=== PATIENT | female | born 1990 ===

== ENCOUNTER → 2017-07-09 | Outpatient (CLI) | payer OTHER ==
[~2017-07-09] MED LIST: ALBU90OI INH; CODACE30 PO; DOXY100 PO; HYDACE5 PO; NAPR500 PO; PENVK500 PO; RXCODACET PO; RXPENVK250 PO; RXTRAM50 PO; TRAM50 PO
[2017-07-09 16:40] LABS: BASOPHILS ABSOLUTE AUTO 0.05 K/mm3 (0.00-0.23); BASOPHILS PERCENT AUTO 1 % (0-2); EOSINOPHILS ABSOLUTE AUTO 0.17 K/mm3 (0.00-0.68); EOSINOPHILS PERCENT AUTO 2 % (0-6); Hematocrit 37.1 % (33.0-51.0); IMMATURE GRAN ABSOLUTE AUTO 0.02 K/mm3 (0.00-0.10); IMMATURE GRAN PERCENT AUTO 0 % (0-1); LYMPHOCYTES ABSOLUTE AUTO 2.47 K/mm3 (0.84-5.20); LYMPHOCYTES PERCENT AUTO 33 % (21-46); MONOCYTES ABSOLUTE AUTO 0.67 K/mm3 (0.16-1.47); MONOCYTES PERCENT AUTO 9 % (4-13); Mean Corpuscular HGB 27.3 pg (26.0-34.0); Mean Corpuscular HGB Conc 32.3 g/dL (31.5-36.5); Mean Corpuscular Volume 85 fL (80-100); Mean Platelet Volume 10.5 fL (9.1-12.4); NEUTROPHILS PERCENT AUTO 55 % (41-73); Platelet Count 310 K/mm3 (150-400); RDW Coefficient Variation 14.6 % (11.7-14.2); RDW Standard Deviation 44.9 fL (35.1-46.3); Red Blood Cell Count 4.39 M/mm3 (3.80-5.20); White Blood Cell Count 7.58 K/mm3 (4.00-11.30)
[2017-07-09 16:58] LABS: Alanine Aminotransfer (ALT/SGP 37 U/L (12-78); Albumin, Blood 3.6 g/dL (3.4-5.0); Albumin/Globulin Ratio 0.8 (0.8-1.8); Alk Phos 77 U/L (50-136); Anion Gap 8 mmol/L (6-16); Aspartate Aminotrans (AST/SGOT 20 U/L (12-37); Bilirubin, Total 0.3 mg/dL (0.1-1.0); Blood Urea Nitrogen 8 mg/dL (8-24); Bun/Creatinine Ratio 16.2 (12.0-20.0); CO2, Blood 24 mmol/L (21-32); Calcium, Blood 8.7 mg/dL (8.5-10.1); Chloride, Blood 106 mmol/L (98-108); Creatinine, Blood 0.49 mg/dL (0.40-1.00); Free Thyroxine 0.76 ng/dL (0.70-1.60); Globulin, Blood 4.3 g/dL (2.2-4.0); Glomerular Filtration Rate >60 (60-); Glucose, Blood 83 mg/dL (70-99); Potassium, Blood 3.8 mmol/L (3.5-5.5); Sodium, Blood 138 mmol/L (136-145); Total Protein, Blood 7.9 g/dL (6.4-8.2)
[2017-07-09 17:12] LABS: Percent Saturation 5.3 % (15.0-50.0)
== END | disposition home or self-care (01) ==
LOC: LAB 15:44
PROVIDERS: Nurse Practitioner Family
DX: R53.82 Chronic fatigue, unspecified (principal)
CPT/HCPCS: 80053; 82306; 83540; 83550; 84439; 84443; 85025

== ENCOUNTER → 2017-09-17 | Outpatient (CLI) | payer OTHER ==
[2017-09-18 17:08] LABS: CHLAMYDIA TRACHOMATIS, NAA Negative (Negative); NEISSERIA GONORRHOEAE, NAA Negative (Negative)
== END ==
LOC: LAB 12:16 → LAB SHORT 12:16
PROVIDERS: Registered Nurse Community Health
DX: Z11.3 Encounter for screening for infections with a predominantly sexual mode of transmission (principal)
CPT/HCPCS: 87491; 87591

== ENCOUNTER → 2018-07-28 | Outpatient (CLI) | payer OTHER | END | disposition home or self-care (01) | LOC: LAB SHORT 12:42 → LAB EV 12:42 | DX: J02.9 Acute pharyngitis, unspecified (principal) | CPT/HCPCS: 87070 ==

== ENCOUNTER → 2019-02-16 | Outpatient (CLI) | payer OTHER | END | disposition home or self-care (01) | LOC: LAB SHORT 11:12 → LAB EV 11:12 | DX: J02.9 Acute pharyngitis, unspecified (principal) | CPT/HCPCS: 87081 ==

== ENCOUNTER 2019-10-26 02:25 | Emergency (ER) | payer OTHER ==
[~2019-10-26] VITALS: Ht 165.1 cm; Wt 87.5 kg
[2019-10-26] MEDS ORDERED: CITA20 PO (03:25)
[2019-10-26 03:44] LABS: BASOPHILS ABSOLUTE AUTO 0.07 K/mm3 (0.00-0.23); BASOPHILS PERCENT AUTO 1 % (0-2); EOSINOPHILS ABSOLUTE AUTO 0.12 K/mm3 (0.00-0.68); EOSINOPHILS PERCENT AUTO 1 % (0-6); Hematocrit 39.4 % (33.0-51.0); Hemoglobin 12.8 g/dL (11.5-16.0); IMMATURE GRAN ABSOLUTE AUTO 0.02 K/mm3 (0.00-0.10); IMMATURE GRAN PERCENT AUTO 0 % (0-1); LYMPHOCYTES ABSOLUTE AUTO 2.74 K/mm3 (0.84-5.20); LYMPHOCYTES PERCENT AUTO 26 % (21-46); MONOCYTES PERCENT AUTO 12 % (4-13); Mean Corpuscular HGB 29.4 pg (26.0-34.0); Mean Corpuscular HGB Conc 32.5 g/dL (31.5-36.5); Mean Corpuscular Volume 91 fL (80-100); Mean Platelet Volume 9.8 fL (9.1-12.4); NEUTROPHILS ABSOLUTE AUTO 6.33 K/mm3 (1.96-9.15); NEUTROPHILS PERCENT AUTO 60 % (41-73); Platelet Count 313 K/mm3 (150-400); RDW Coefficient Variation 13.1 % (11.7-14.2); RDW Standard Deviation 43.2 fL (35.1-46.3); Red Blood Cell Count 4.35 M/mm3 (3.80-5.20); White Blood Cell Count 10.48 K/mm3 (4.00-11.30)
[2019-10-26 04:01] LABS: Alanine Aminotransfer (ALT/SGP 66 U/L (12-78); Albumin, Blood 3.5 g/dL (3.4-5.0); Albumin/Globulin Ratio 0.8 (0.8-1.8); Alk Phos 98 U/L (50-136); Anion Gap 3 mmol/L (6-16); Aspartate Aminotrans (AST/SGOT 50 U/L (12-37); Bilirubin, Total 0.4 mg/dL (0.1-1.0); Blood Urea Nitrogen 11 mg/dL (8-24); Bun/Creatinine Ratio 18.7 (12.0-20.0); CO2, Blood 27 mmol/L (21-32); Calcium, Blood 8.3 mg/dL (8.5-10.1); Chloride, Blood 106 mmol/L (98-108); Creatinine, Blood 0.59 mg/dL (0.40-1.00); Globulin, Blood 4.2 g/dL (2.2-4.0); Glomerular Filtration Rate >60 (60-); Glucose, Blood 103 mg/dL (70-99); Potassium, Blood 3.8 mmol/L (3.5-5.5); Sodium, Blood 136 mmol/L (136-145); Total Protein, Blood 7.7 g/dL (6.4-8.2)
[2019-10-26 04:32] LABS: Source, Urine Clean Catch
[2019-10-26 04:35] LABS: Bilirubin, Urine Neg (Neg); Blood, Urine 5+ (Neg); Glucose Qualitative, Urine Neg (Neg); Ketones, Urine Neg (Neg); Leukocyte Esterase, Urine 3+ (Neg); Nitrite, Urine Neg (Neg); Protein, Urine 3+ (Neg); Urobilinogen, Urine NORM (Normal); pH, Urine 6.5 (5.0-8.0)
[2019-10-26 04:38] LABS: Appearance, Urine Clear (Clear); Color, Urine Yellow (P-Yellow)
[2019-10-26 04:40] LABS: White Blood Cells, Urine 50-100 /hpf (0-5)
[2019-10-26 04:41] LABS: Bacteria Mod /hpf; Mucus Light (0-Heavy); Red Blood Cells, Urine 0-2 /hpf (0-2); Squamous Epithelial Cells Few /hpf (Few)
[2019-10-26] MEDS ORDERED: CEFD300 PO (05:18)
== END 2019-10-26 05:40 | disposition home or self-care (01) ==
LOC: ER 02:25
PROVIDERS: Emergency Medicine
DX: N39.0 Urinary tract infection, site not specified (principal)
CPT/HCPCS: 36415; 80053; 81001; 81025; 85025; 87077; 87086; 87186; 96365; 96375; 99284-25; J0696; J1885

== ENCOUNTER → 2020-01-25 | Outpatient (CLI) | payer OTHER ==
[~2020-01-25] MED LIST changes: +CEFD300 PO; +CITA20 PO
== END | disposition home or self-care (01) ==
LOC: LAB SHORT 12:02
DX: J02.9 Acute pharyngitis, unspecified (principal); Z20.828 Contact with and (suspected) exposure to other viral communicable diseases
CPT/HCPCS: 87081; U0003

== ENCOUNTER → 2020-12-29 | Outpatient (CLI) | payer OTHER ==
[2020-12-29 09:14] LABS: BASOPHILS ABSOLUTE AUTO 0.04 K/mm3 (0.00-0.23); BASOPHILS PERCENT AUTO 0 % (0-2); EOSINOPHILS ABSOLUTE AUTO 0.01 K/mm3 (0.00-0.68); EOSINOPHILS PERCENT AUTO 0 % (0-6); Hematocrit 35.7 % (33.0-51.0); Hemoglobin 11.9 g/dL (11.5-16.0); IMMATURE GRAN ABSOLUTE AUTO 0.04 K/mm3 (0.00-0.10); IMMATURE GRAN PERCENT AUTO 0 % (0-1); LYMPHOCYTES ABSOLUTE AUTO 1.21 K/mm3 (0.84-5.20); LYMPHOCYTES PERCENT AUTO 10 % (21-46); MONOCYTES ABSOLUTE AUTO 0.98 K/mm3 (0.16-1.47); MONOCYTES PERCENT AUTO 8 % (4-13); Mean Corpuscular HGB 28.9 pg (26.0-34.0); Mean Corpuscular HGB Conc 33.3 g/dL (31.5-36.5); Mean Corpuscular Volume 87 fL (80-100); Mean Platelet Volume 10.3 fL (9.1-12.4); NEUTROPHILS ABSOLUTE AUTO 9.47 K/mm3 (1.96-9.15); NEUTROPHILS PERCENT AUTO 81 % (41-73); Platelet Count 309 K/mm3 (150-400); RDW Coefficient Variation 13.2 % (11.7-14.2); RDW Standard Deviation 41.2 fL (35.1-46.3); Red Blood Cell Count 4.12 M/mm3 (3.80-5.20); White Blood Cell Count 11.75 K/mm3 (4.00-11.30)
[2020-12-29 10:16] LABS: Alanine Aminotransfer (ALT/SGP 26 U/L (12-78); Albumin, Blood 3.5 g/dL (3.4-5.0); Albumin/Globulin Ratio 0.8 (0.8-1.8); Alk Phos 78 U/L (50-136); Anion Gap 4 mmol/L (6-16); Aspartate Aminotrans (AST/SGOT 19 U/L (12-37); Bilirubin, Total 0.9 mg/dL (0.1-1.0); Blood Urea Nitrogen 9 mg/dL (8-24); Bun/Creatinine Ratio 11.4 (12.0-20.0); CO2, Blood 27 mmol/L (21-32); Calcium, Blood 8.5 mg/dL (8.5-10.1); Chloride, Blood 103 mmol/L (98-108); Creatinine, Blood 0.79 mg/dL (0.40-1.00); Globulin, Blood 4.3 g/dL (2.2-4.0); Glomerular Filtration Rate >60 (60-); Glucose, Blood 103 mg/dL (70-99); Potassium, Blood 3.9 mmol/L (3.5-5.5); Sodium, Blood 134 mmol/L (136-145); Total Protein, Blood 7.8 g/dL (6.4-8.2)
== END | disposition home or self-care (01) ==
LOC: LAB SHORT 09:06 → LAB EV 09:06
PROVIDERS: Physician Assistant
DX: N10 Acute pyelonephritis (principal)
CPT/HCPCS: 80053; 85025; 87077; 87086; 87186

== ENCOUNTER → 2021-10-13 | Outpatient (CLI) | payer OTHER | LOC: LAB 15:40 → LAB SHORT 15:40 | DX: N39.0 Urinary tract infection, site not specified (principal) | CPT/HCPCS: 87077; 87086; 87186 ==

== ENCOUNTER → 2021-12-05 | Outpatient (CLI) | payer OTHER ==
[2021-12-07 16:08] LABS: CHLAMYDIA TRACHOMATIS, NAA Negative (Negative); HPV 16 Negative (Negative); HPV 18 Negative (Negative); HPV OTHER HR TYPES Negative (Negative)
== END | disposition home or self-care (01) ==
LOC: LAB 12:28 → LAB SHORT 12:28
PROVIDERS: Advanced Practice Midwife
DX: Z01.419 Encounter for gynecological examination (general) (routine) without abnormal findings (principal); Z11.3 Encounter for screening for infections with a predominantly sexual mode of transmission
CPT/HCPCS: 87491; 87591; 87624; G0123

== ENCOUNTER → 2022-01-16 | Outpatient (CLI) | payer OTHER | END | disposition home or self-care (01) | LOC: LAB 18:47 → LAB SHORT 18:47 | DX: Z34.92 Encounter for supervision of normal pregnancy, unspecified, second trimester (principal) | CPT/HCPCS: 83036 ==

== ENCOUNTER → 2022-03-27 | Outpatient (CLI) | payer OTHER ==
[2022-03-27 18:41] LABS: Hematocrit 31.8 % (33.0-51.0); Hemoglobin 9.7 g/dL (11.5-16.0)
[2022-03-27 19:49] LABS: Ferritin, Serum 2 ng/mL (8-252); Glucose 1 Hour Gest Screen 150 mg/dL (70-140)
[2022-03-28 14:20] LABS: Percent Saturation 2.3 % (15.0-50.0)
== END | disposition home or self-care (01) ==
LOC: LAB 17:07 → LAB SHORT 17:07
PROVIDERS: Registered Nurse Community Health
DX: O99.019 Anemia complicating pregnancy, unspecified trimester (principal); O99.891 Other specified diseases and conditions complicating pregnancy; D64.9 Anemia, unspecified; R25.2 Cramp and spasm
CPT/HCPCS: 82728; 82950; 83540; 83550; 85014; 85018

== ENCOUNTER → 2022-05-01 | Outpatient (CLI) | payer OTHER | END | disposition home or self-care (01) | LOC: LAB SHORT 17:10 | PROVIDERS: Registered Nurse Community Health | DX: O47.9 False labor, unspecified (principal) | CPT/HCPCS: 82731 ==

== ENCOUNTER 2022-06-06 11:23 | Inpatient (IN) | payer OTHER ==
[~2022-06-06] VITALS: Ht 162.6 cm; Wt 99.6 kg
[2022-06-06] MEDS ORDERED: METF500C PO (11:47)
[2022-06-06] MEDS ORDERED: Prozac20 MG PO (11:47)
[2022-06-06] MEDS ORDERED: PRENATAL TABLE1 EAC2 PO (11:48)
[2022-06-06 12:52] LABS: BASOPHILS ABSOLUTE AUTO 0.02 K/mm3 (0.00-0.23); BASOPHILS PERCENT AUTO 0 % (0-2); EOSINOPHILS ABSOLUTE AUTO 0.04 K/mm3 (0.00-0.68); EOSINOPHILS PERCENT AUTO 0 % (0-6); Hematocrit 40.6 % (33.0-51.0); Hemoglobin 13.8 g/dL (11.5-16.0); IMMATURE GRAN ABSOLUTE AUTO 0.03 K/mm3 (0.00-0.10); IMMATURE GRAN PERCENT AUTO 0 % (0-1); LYMPHOCYTES ABSOLUTE AUTO 1.63 K/mm3 (0.84-5.20); LYMPHOCYTES PERCENT AUTO 18 % (21-46); MONOCYTES PERCENT AUTO 10 % (4-13); Mean Corpuscular HGB 29.4 pg (26.0-34.0); Mean Corpuscular Volume 87 fL (80-100); Mean Platelet Volume 9.3 fL (9.1-12.4); NEUTROPHILS ABSOLUTE AUTO 6.65 K/mm3 (1.96-9.15); NEUTROPHILS PERCENT AUTO 72 % (41-73); Platelet Count 259 K/mm3 (150-400); RDW Coefficient Variation 21.9 % (11.7-14.2); RDW Standard Deviation 67.1 fL (35.1-46.3); Red Blood Cell Count 4.69 M/mm3 (3.80-5.20); White Blood Cell Count 9.27 K/mm3 (4.00-11.30)
[2022-06-07 04:43] LABS: Hematocrit 37.3 % (33.0-51.0); Hemoglobin 12.5 g/dL (11.5-16.0); Mean Corpuscular HGB 29.4 pg (26.0-34.0); Mean Corpuscular HGB Conc 33.5 g/dL (31.5-36.5); Mean Corpuscular Volume 88 fL (80-100); Mean Platelet Volume 9.3 fL (9.1-12.4); Platelet Count 232 K/mm3 (150-400); RDW Coefficient Variation 22.1 % (11.7-14.2); RDW Standard Deviation 67.7 fL (35.1-46.3); Red Blood Cell Count 4.25 M/mm3 (3.80-5.20); White Blood Cell Count 10.22 K/mm3 (4.00-11.30)
[2022-06-07] MEDS ORDERED: IBUP800 PO (12:51)
--- NOTE | 2022-06-07 15:58 | NUR ---
agree with assessment julius rnc
--- NOTE | 2022-06-07 16:32 | NUR ---
PATIENT DENIES INTERPERSONAL VIOLENCE AT HOME. PARTNER AND PATIENT INTERACT APPROPRIATELY AND ATTEND TO EACH OTHER AND BABY IN A HEALTHY MANNER. VS WNL. DISCHARGE EDUCATION PROVIDED AND PPFU APPT MADE. BANDS MATCHED TO BABY. JORGE PAZ. PATIENT HAS COLLECTED PRESCRIPTIONS FROM PHARMACY. CARSEAT EDUCATION PROVIDED. PATIENT'S SISTER IS [employer] WITH [employer] AND WILL PROVIDE SUPPORT AT HOME. GOOD FAMILIAL SUPPORT AT HOME. WALKED PATIENT TO CAR.
--- NOTE | 2022-06-09 09:20 | NUR ---
NO SHOW FOR PPFU APPOINTMENT SCHEDULED 06/09 @ 0900 CALLED LEFT MESSAGE TO CALL AND RESCHEULED FOR SUNDAY OR SUNDAY NEXT WEEK - NOTIFIED [facility]
== END 2022-06-07 16:45 | disposition home or self-care (01) | DRG 807 ==
LOC: BC 11:23 → OBS 11:23 → BC 12:31
PROVIDERS: ADMIT Registered Nurse Community Health
PROC: 10E0XZZ Delivery of Products of Conception, External Approach (ICD-10-PCS; principal; 2022-06-06)
PROC: 3E0R3BZ Introduction of Anesthetic Agent into Spinal Canal, Percutaneous Approach (ICD-10-PCS; 2022-06-06)
PROC: 00HU33Z Insertion of Infusion Device into Spinal Canal, Percutaneous Approach (ICD-10-PCS; 2022-06-06)
DX: O24.429 Gestational diabetes mellitus in childbirth, unspecified control (principal); Z37.0 Single live birth; O76 Abnormality in fetal heart rate and rhythm complicating labor and delivery; O99.02 Anemia complicating childbirth; D64.9 Anemia, unspecified; Z3A.38 38 weeks gestation of pregnancy; Z98.890 Other specified postprocedural states; Z79.899 Other long term (current) drug therapy; Z79.84 Long term (current) use of oral hypoglycemic drugs
CPT/HCPCS: 36415; 82947; 85025; 85027; 86850; 86900; 86901; A9270; J1885; J3010; J7120

== ENCOUNTER → 2022-09-08 | Outpatient (CLI) | payer OTHER ==
[~2022-09-08] MED LIST changes: +IBUP800 PO; +METF500C PO; +PRENATAL TABLE1 EAC2 PO; +Prozac20 MG PO
[2022-09-08 10:41] LABS: Hematocrit 39.1 % (33.0-51.0)
== END | disposition home or self-care (01) ==
LOC: LAB SHORT 09:41
PROVIDERS: Registered Nurse Community Health
DX: Z39.2 Encounter for routine postpartum follow-up (principal); D50.9 Iron deficiency anemia, unspecified
CPT/HCPCS: 83036; 85014; 85018

== ENCOUNTER → 2023-01-16 | Outpatient (CLI) | payer OTHER ==
[2023-01-16 22:36] LABS: Percent Saturation 35.6 % (15.0-50.0)
== END | disposition home or self-care (01) ==
LOC: LAB SHORT 15:17 → LAB 15:17
PROVIDERS: Registered Nurse Community Health
DX: R53.83 Other fatigue (principal)
CPT/HCPCS: 82728; 83036; 83540; 83550; 84443